=== PATIENT | male | born 1960 | race Caucasian/White ===

== ENCOUNTER 2017-03-02 16:15 | Emergency (ER) | payer OTHER ==
[~2017-03-02] VITALS: Ht 182.9 cm; Wt 95.7 kg
--- NOTE | ~2017-03-02 | CT4 ---
[facility] A Service of [facility] & [facility] RADIOLOGY TEXT RESULTS PATIENT: LORETO AGUIRRE LOCATION: SED : 60 UNIT #: [id number] AGE: [address]: Isabella Tolbert SEX: M ORDER DR: [id number] [address] [id number] MR#: [id number] Acc #: [id number] NAME: LORETO AGUIRRE : 1960 SEX: M STUDY DATE/TIME: 03/02/2017 17:14 UNIT: SED ROOM: STUDY DESCRIPTION: CT Abd and Pelv Wo Cont Attending Physician: Isabella Tolbert Pa-C Ordering Physician: Isabella Tolbert Pa-C Primary Care Physician: Diana Durand M.D. MEDICAL IMAGING REPORT This report is preliminary unless electronic signature is present. EXAM CT of abdomen and pelvis without contrast, 03/02/2017, 1714 hours. CLINICAL HISTORY 56-year-old man complaining of right flank pain, left flank pain and blood in urine for 2 days. History of prior stones. COMPARISON None. TECHNIQUE Helical noncontrasted images were obtained from the lung bases through the pubic symphysis without oral or intravenous contrast. Sagittal and coronal reconstructions were performed. This CT exam was performed with one or more of the following radiation dose reduction techniques: automatic exposure control, adjustment of mA and/or kV according to patient size, and iterative reconstruction. FINDINGS Images through the lung bases are clear of acute densities. There is no pleural effusion. The distal esophagus is normal. Images through the abdomen without contrast demonstrate a normal appearance to the liver, spleen, pancreas, gallbladder and bile ducts. The adrenal glands are normal. The left kidney demonstrates no mass, stone or dilatation. There is no ureterectasis or left ureteral calculus. The right kidney demonstrates several stones including a punctate 2 mm stone nonobstructing in the posterior mid-right kidney and a larger stone in the lower pole also nonobstructing measuring 1 cm. There is very minimal right-sided pelvocaliectasis with a stone measuring 0.45 cm at the STS. [facility] A Service of [facility] & [facility] RADIOLOGY TEXT RESULTS PATIENT: LORETO AGUIRRE LOCATION: SED : 60 UNIT #: [id number] AGE: [address]: Isabella Tolbert SEX: M ORDER DR: right ureteropelvic junction. The distal right ureter is nondilated. There is no bladder stone. The stomach is normal. There is no small bowel distension or small bowel wall thickening. The appendix is normal. There is moderate stool throughout the colon without colonic wall thickening. CT pelvis demonstrates bilateral phleboliths. The bladder, seminal vesicles and prostate appear normal. IMPRESSION 1. There is a 0.45 x 0.5 cm stone at the right ureteral pelvic junction resulting in very minimal pelvocaliectasis. 2. There are small stones in the right mid kidney with a larger 10 mm stone in the lower pole right kidney. No left renal or ureteral stones. 3. Normal appendix. STAT * RESULT Dictated by... Priscilla Dahl M.D. THIS IS AN ELECTRONICALLY VERIFIED REPORT Priscilla Dahl M.D. at 03/02/2017 8:26 PM Avelina TD: 03/02/2017 17:49 JOB #: [id number] MEDICAL IMAGING REPORT Page 1 of 1
[2017-03-02] MEDS ORDERED: LISINOPRIL30 MG (16:18)
[2017-03-02 16:55] LABS: URINE SOURCE CLEAN CATCH
[2017-03-02 16:55] LABS: BASOPHIL# 0.1 X10e3 (0-0.3); BASOPHIL% 1.2 % (0-2.5); EOSINOPHIL# 0.3 X10e3 (0-0.7); EOSINOPHIL% 2.5 % (0.0-7.0); HEMATOCRIT 40.2 % (38.0-50.0); HEMOGLOBIN 13.5 gm/dL (13.0-16.0); LYMPHOCYTE# 2.9 X10e3 (1.0-3.5); LYMPHOCYTE% 29.5 % (17.0-45.0); MEAN CELL VOLUME 86.2 FL (83-96); MEAN CORPUSCULAR HGB CONC 33.7 g/dL (30-36); MEAN PLATELET VOLUME 8.2 FL (6.5-11.5); MONOCYTE# 0.9 X10e3 (0-1.0); MONOCYTE% 9.1 % (3.0-12.0); NEUTROPHIL# 5.7 X10e3 (1.5-7.1); NEUTROPHIL% 57.7 % (40-75); PLATELET COUNT 246 X10e3 (140-420); RED BLOOD COUNT 4.66 X10e (3.90-5.60); RED CELL DISTRIBUTION WIDTH 13.4 % (11.0-15.5); WHITE BLOOD COUNT 9.8 X10e3 (4.0-10.5)
[2017-03-02 16:57] LABS: URINE APPEARANCE CLEAR; URINE BILIRUBIN NEG (NEG); URINE BLOOD 3+ (NEG); URINE COLOR YELLOW; URINE GLUCOSE NEG (NORM); URINE KETONE NEG (NEG); URINE LEUKOCYTE ESTERASE NEG (NEG); URINE NITRATE NEG (NEG); URINE PROTEIN NEG (NEG); URINE SPECIFIC GRAVITY >=1.030 (1.003-1.035); URINE UROBILINOGEN 0.2 MG/DL (NORM)
[2017-03-02 17:10] LABS: DIFF IND NO
[2017-03-02 17:10] LABS: MICRO INDICATED? YES
[2017-03-02 17:17] LABS: CULTURE INDICATED? NO; URINE BACTERIA NEG (NEG); URINE RBC 100-200 /[HPF] (0-2); URINE WBC 0-2 /[HPF] (0-5)
[2017-03-02 17:19] LABS: ALBUMIN SERUM 4.5 g/dL (3.5-5.0); BILIRUBIN,TOTAL 0.5 mg/dL (0.2-2.0); BUN/CREATININE RATIO 13.33; CALCIUM SERUM 9.3 mg/dL (8.4-10.2); CREATININE SERUM 1.2 mg/dL (0.6-1.4); GLOM FILT RATE Estimated 67.2 mL/min (>60); POTASSIUM 4.1 mmol/L (3.5-5.1); PROTEIN TOTAL SERUM 7.3 g/dL (6.0-8.3)
[2017-04-19] MEDS ORDERED: HYDROCODON-ACE1 EAC7 PO (07:06)
== END 2017-03-02 18:10 | disposition home or self-care (01) ==
LOC: SED 16:15
PROVIDERS: Physician Assistant
DX: N21.1 Calculus in urethra (principal); I10 Essential (primary) hypertension; Z88.7 Allergy status to serum and vaccine
CPT/HCPCS: 36415; 74176; 80053; 81003; 85025; 96374; 96375; 99284; J1885; J2405